=== PATIENT | female | born 1980 | race Caucasian/White ===

== ENCOUNTER 2019-10-02 15:32 | Emergency (ER) | payer OTHER, SELFPAY ==
--- NOTE | 2019-10-02 16:01 | XRR_ITS ---
PROCEDURE INFORMATION: Exam: XR Left Wrist Exam date and time: 10/02/2019 4:31 PM Age: 39 years old Clinical indication: Pain; Wrist; Left; Additional info: Injury TECHNIQUE: Imaging protocol: XR Left wrist. Views: 3 or more views. COMPARISON: No relevant prior studies available. FINDINGS: Bones/joints: Normal. Soft tissues: Normal. XR/XR wrist LT min 3V* [id number] IMPRESSION: No acute abnormality.
[2019-10-02 16:41] VITALS: BP 152/103; PULSE 73; RESP 16; TEMP 36.9; O2SAT 100; BMI 33.3
--- NOTE | 2019-10-02 17:35 | W.ED.EXTPRO ---
HPI - Extremity Problem General: Chief complaint: Extremity Injury, Upper Stated complaint: L WRIST INJURY Time Seen by Provider: 10/02/19 16:14 Review of Systems General: Reports: 10 or more systems reviewed and unremarkable except in HPI and below PFSH ED PFSH: Medical History Anxiety and depression GERD (gastroesophageal reflux disease) Surgical History History of cholecystectomy History of sinus surgery Family History Other Autoimmune disease CAD (coronary artery disease) Cancer Hypertension Psychiatric illness Stroke Social History Smoking and tobacco status: never smoked Alcohol intake: never Physical Exam Narrative: EXAM NARRATIVE: Patient has a several month long history of left wrist pain. She has been told multiple times by multiple providers that the wrist was sprained and has worn a splint each time. Patient states that the splints are not helping and that she is still in pain. Course Vital Signs: Vital signs: Vital Signs Temperature 98.5 F 10/02/19 16:41 Pulse Rate 73 10/02/19 16:41 Respiratory Rate 16 10/02/19 16:41 Blood Pressure 152/103 10/02/19 16:41 Pulse Oximetry 100 10/02/19 16:41 Discharge Plan Discharge Patient Disposition: Home, Self-Care Clinical Impression: Sprain of left wrist Qualifiers: Encounter type: initial encounter Qualified Code(s): S63.502A - Unspecified sprain of left wrist, initial encounter Condition: Stable Prescriptions: No Action bupropion HCl [Wellbutrin XL] 150 mg tablet extended release 24 hr 150 mg PO QAM RF: 0 Nexplanon 68 mg implant 1 implant SUBDERMAL .as directed RF: 0 duloxetine [Cymbalta] 60 mg capsule,delayed release(DR/EC) 60 mg PO DAILY RF: 0 diclofenac sodium 75 mg tablet,delayed release (DR/EC) 75 mg PO BID Qty: 28 RF: 0 Discharge Orders: Discharge Order (Routine); Ordered 10/02/19 Ordered By: Hank Person Activity Restrictions/Additional Instructions: follow with Dr [place] Coding Level of Care Code ED Construction Producer for Asiya Dennison
[2019-10-02 17:46] VITALS: BP 140/88; PULSE 75; RESP 18; O2SAT 100
--- NOTE | 2019-10-06 10:06 | DCPLANNER ---
combat control manager had message to schedule a follow up appointment for patient with ortho. combat control manager called the ortho clinic, spoke with Pat, gave clinic patients information. combat control manager was told that patients information would be printed and reviewed. Clinic will call rifle case repairer and patient with appointment information.
--- NOTE | 2019-10-08 13:50 | DCPLANNER ---
Patient had an appointment scheduled for 10.07.19 with ortho. Patient did attend the appointment.
== END 2019-10-02 17:47 | disposition home or self-care (01) ==
PROVIDERS: Emergency Provider Family Medicine
DX: S63.502A Unspecified sprain of left wrist, initial encounter (principal); X58.XXXA Exposure to other specified factors, initial encounter
CPT/HCPCS: 12345; 29125; 73110; 99281; 99283

== ENCOUNTER 2019-10-09 05:56 | Day surgery (SDC) | payer OTHER, SELFPAY ==
[2019-10-08 14:44] VITALS: BMI 37.4
[2019-10-09 06:10] LABS: OR HCG Qualitative Urine Negative (Negative)
[2019-10-09 06:31] VITALS: BP 145/90; PULSE 79; RESP 18; TEMP 36.3; O2SAT 99
--- NOTE | 2019-10-09 06:31 | ANES.PREANE2 ---
Pre-Anesthetic Assessment Pre-Anesthetic Assessment: Height/Weight: Height 1.65 m Weight 102.058 kg Preop Diagnosis: Left de Quervain's tenosynovitis Proposed Procedure: Operation Date: 10/09/19 07:00 Proposed Procedures p Dequervain Release [id number] M65.4(Left) - Hanna Floyd MD Last intake: Intake Last Liquid Date 10/08/19 Last Liquid Time 20:30 Last Solid Date 10/08/19 Last Solid Time 20:30 Social: Social History: No alcohol and No tobacco Exam: Pre-Anes Outpt Exam: alert, oriented x 3, clear to auscultation bilaterally and regular rate & rhythm Airway: Submandibular: WNL Cervical ROM: WNL MP: 1 Dentition: Other (teeth ok) History/ROS: No significant history except as noted Pulmonary: Pulmonary: None reported CV/HEM: CV/HEM: None reported : : None reported Hepatic: Hepatic: None reported GI: GI: GERD (not well controlled) Metabolic: Metabolic: Morbid obesity Musc/skel: Musc/skel: None reported Neuropsych: Neuropsych: Anxiety and Depression Anesthetic Plan: ASA status: 2 Anesthesia: Anesthesia Evaluation and MAC Risk of > 500 ml blood loss (7ml/kg in children): No PFSH Anesthesia PFSH: Medical History Anxiety and depression GERD (gastroesophageal reflux disease) Surgical History History of cholecystectomy History of sinus surgery Family History Other Autoimmune disease CAD (coronary artery disease) Cancer Hypertension Psychiatric illness Stroke Social History Smoking and tobacco status: never smoked Alcohol intake: never Female Reproductive History: Date of last menstrual period: 02/26/18 Data Anesthesia Other Labs: Laboratory Results - last 48 hr 10/09/19 05:56 Urine HCG, Qual Negative Cardiac Studies: No Data to Display
[2019-10-09] MEDS: CELEcoxib 200 mg Capsule 400 MG PO (06:43)
[2019-10-09] MEDS: sodium chloride 0.9% 1,000 ML 30 ML IV (06:52)
--- NOTE | 2019-10-09 06:55 | W.PM.OPSUD ---
Surgery/Procedure H&P Update DATE OF PROCEDURE: October 09, 2019 DATE H&P PERFORMED: 10/07/19 H&P UPDATE INFORMATION: I have reviewed H&P completed within last 30 days, I have examined patient prior to procedure and H&P is in [facility] on date indicated PREOP DIAGNOSIS: Left de Quervain's tenosynovitis PLANNED PROCEDURE: Operation Date: 10/09/19 07:00 Proposed Procedures p Dequervain Release [id number] M65.4(Left) - Hanna Floyd MD
[2019-10-09 07:55] VITALS: BP 132/85; PULSE 78; RESP 18; TEMP 36.3
[2019-10-09 08:21] VITALS: BP 112/87; PULSE 64; RESP 18; O2SAT 99
--- NOTE | 2019-10-09 08:23 | PM.OP ---
Operative Report Date of procedure: October 09, 2019 Pre-op Diagnosis: Left de Quervain's tenosynovitis Post-op diagnosis: same Procedure Done: Release left de Quervain's tenosynovitis Specimens removed/disposition: None Pathology: none sent Surgeon: Hanna Floyd Analytical Consultant: None Anesthesia: MAC (With [place] block) Estimated blood loss (mL): 0 Tourniquet time (min): 36 IV fluids (mL): 800 Urine output (mL): 0 Complications: None Condition: stable Disposition: same day Brief History: This 39-year-old woman presented to my office with complaints consistent with de Quervain's tenosynovitis. After discussion with the patient, she did wish to proceed with operative intervention. Risks and complications were discussed with her. Consents were signed preoperatively. The patient was scheduled for the above procedure. Procedure: The patient was brought to the operating theater. Anesthesia provided [place] block with MAC. The patient's left upper extremity was prepped and draped in usual fashion utilizing DuraPrep. It was draped free. The radial styloid was palpated and an incision was made horizontally approximately 1 cm proximal to the tip of the radial styloid. Dissection continued through the skin and dermis but following that soft tissue blunt dissection was accomplished to prevent injury to the superficial radial nerve branches in the area. We were able to retract these branches and the first dorsal compartment was visualized. The canal was released longitudinally using a combination of scalpel and scissors. We then confirmed that each of the tendons at been released. There was one abductor pollicis longus tendons and one extensor pollicis brevis tendon. All of these were released at least a centimeter distal to the radial styloid and proximally as well. There was no further compression across the tendons. The tendons were pulled up out of the tunnel for evaluation. Following this, the wound was irrigated. Attention was then directed to closure. Closure was accomplished with 4-0 Monocryl in a subcuticular suture was placed in a running fashion. We injected the wound with half percent Marcaine plain for local anesthetic. This was followed by Steri-Strips, Exofin, and a Tegaderm. We then placed a compression dressing and Miles wrap. Patient was returned to Recovery Room in a satisfactory condition and will be discharged home to follow-up with me in the office. There were no specimens and no complications.
== END 2019-10-09 08:40 | disposition home or self-care (01) ==
PROVIDERS: PCP Family Medicine; Visit Provider Specialist
PROC: (CPT 25000; principal; 2019-10-09 07:00)
DX: M65.4 Radial styloid tenosynovitis [de Quervain] (principal); K21.9 Gastro-esophageal reflux disease without esophagitis; E66.01 Morbid (severe) obesity due to excess calories; Z68.37 Body mass index [BMI] 37.0-37.9, adult; F41.9 Anxiety disorder, unspecified; F32.9 Major depressive disorder, single episode, unspecified
CPT/HCPCS: 25000; 12345; 81025; 84703; J2001; J2704; J3490; J7030

== ENCOUNTER → 2020-02-13 15:03 | Outpatient (BNVA) | payer BC, SELFPAY | PROVIDERS: PCP Family Medicine; Visit Provider Nurse Practitioner Family | DX: N39.0 Urinary tract infection, site not specified (principal) | CPT/HCPCS: 81000 ==

== ENCOUNTER 2020-09-19 13:53 | Inpatient (IN) | payer BC, SELFPAY ==
[2020-09-19 13:56] VITALS: BP 142/89; PULSE 91; RESP 16; TEMP 36.7; O2SAT 100; BMI 35.7
--- NOTE | 2020-09-19 14:01 | ECG_ITS ---
[facility] Test Date: 2020-09-19 Pat Name: Yusra Appiah Department: Room: Gender: Female Belt Cutter: : 1980 Requested By: Oumar Solis Order Number: [id number] Abraham MD: Polly Rodriguez M.D. Measurements Intervals [place] Rate: 80 P: 64 [place]: 141 QRS: -5 QRSD: 87 T: 43 QT: 349 QTc: 404 Interpretive Statements SINUS RHYTHM WITH SINUS ARRHYTHMIA LOW QRS VOLTAGE IN PRECORDIAL LEADS [QRS DEFLECTION < 1.0 mV IN CHEST LEADS] NONSPECIFIC T-WAVE ABNORMALITY No previous ECG available for comparison Electronically Signed On 09-20-2020 9:26:10 CDT by Polly Rodriguez M.D. [email or web address]
--- NOTE | 2020-09-19 14:21 | ED_ITS ---
HPI - Psych General: Chief Complaint: Psychiatric Symptoms Stated Complaint: Depression/SI Time Seen by Provider: 09/19/20 14:01 History of Present Illness: HPI Narrative: The patient is a 40-year-old female with past medical history of depression comes to the ER complaining of suicidal ideations. She says she is feeling very anxious and feels like no one cares anymore and that she is very depressed and wants to hurt herself. She says she does not want to get up and go to work. Denies alcohol or drugs MD complaint: suicidal ideation and feels depressed Onset (ago): day(s) (2) Duration: constant History of same: Yes Relieving factors: none Context: significant life stressor Associated psychiatric symptoms: depression and suicidal ideation Associated symptoms: Reports depression and suicidal ideation If self harm: admits thoughts of self harm Review of Systems General: Reports: 10 or more systems reviewed and unremarkable except in HPI and below Const: Denies: fatigue Eyes: Denies: change in vision, blurry vision or eye redness ENMT: Denies: throat pain, swelling of lips/tongue, ear or mastoid pain or sabrina al congestion Card: Denies: chest pain, palpitations, irregular heart rhythm, edema, dyspnea on exertion or orthopnea Resp: Denies: dyspnea, productive cough or non-productive cough GI: Denies: abdominal pain, diarrhea or GI cramping : Denies: flank pain, difficulty voiding, urinary frequency or urinary urgency Musc: Denies: neck pain, back pain, extremity pain, joint pain, joint redness, limited range of motion or muscle weakness Skin/Breast: Denies: rash, pruritus, erythema, skin pain or skin tenderness Neuro: Denies: headache(s), numbness in extremities, weakness in extremities, sensory changes, difficulty walking, dizziness, confusion or Slurred speech present Psych: Reports: anxiety, depression and suicidal ideation Endo: Denies: polyuria All/Imm: Denies: urticaria, throat swelling or tongue swelling PFSH ED PFSH: Medical History (Updated 09/19/20 @ 17:17 by Oumar Solis MD) Anxiety and depression GERD (gastroesophageal reflux disease) Surgical History History of cholecystectomy History of sinus surgery Family History Other Autoimmune disease CAD (coronary artery disease) Cancer Hypertension Psychiatric illness Stroke Social History Smoking and tobacco status: never smoked Alcohol intake: never Female Reproductive History: Date of last menstrual period: 09/16/20 Physical Exam Const: COMMON NORMALS: no acute distress, average body habitus, patient oriented x3, no limitations, healthy appearing, alert and well nourished GENERAL APPEARANCE: cooperative, comfortable, well developed and anxious ORIENTATION/CONSCIOUSNESS: Yes awake, Yes oriented to person, Yes oriented to place and Yes oriented to time HENMT: COMMON NORMALS: normocephalic, external ears normal and Normal external nose present HEAD & SCALP: normal to inspection and normocephalic NOSE: Normal external nose present EXTERNAL EAR: Yes external ears normal MOUTH: Normal oral and palatal mucosa present THROAT: posterior oropharynx normal Eye: COMMON NORMALS: Equal, round and reactive pupils present and EOMs intact bilaterally GENERAL EYE: appearance normal, both eyes and all related structures PUPIL: Yes Equal, round and reactive pupils present Neck/C-Spine: COMMON NORMALS: full ROM, no lymphadenopathy, no meningeal signs and no JVD GENERAL: Yes normal visual inspection Lymph: LYMPHATIC: no lymphadenopathy noted Chest: COMMONS NORMALS: normal inspection of the chest and normal palpation of entire chest wall Resp: COMMON NORMALS: normal respiratory effort, No retractions, No use of accessory muscles, clear to auscultation bilaterally and percussion normal EFFORT & INSPECTION: Yes able to speak in complete sentences AUSCULTATION: clear to auscultation bilaterally PERCUSSION: percussion normal Cardio: COMMON NORMALS: no JVD, regular rate, regular rhythm, S1 normal heart sound present, S2 normal heart sound present and Peripheral pulses 2+ throughout RATE: regular rate RHYTHM: regular rhythm HEART SOUNDS: S1 normal heart sound present and S2 normal heart sound present PERIPHERAL PULSES: Peripheral pulses 2+ throughout GI: COMMON NORMALS: Normal to inspection, nondistended, normoactive bowel sounds present, Soft to palpation, non-tender and no masses INSPECTION: Yes normal to inspection PALPATION: Yes Soft to palpation : COMMON NORMALS: Yes no CVA tenderness BLADDER/KIDNEY EXAM: Yes no CVA tenderness Back/Pelvis: COMMON NORMALS: no CVA tenderness, thoracic and lumbar spine normal to inspection, no thoracic nor lumbar tenderness and thoraco-lumbar ROM normal Extremity: COMMON NORMALS: normal to inspection, full ROM, capillary refill normal, no joint enlargement and no pedal edema GENERAL: Yes normal exam except as noted Neuro: COMMON NORMALS: patient oriented x3, CN's II-XII intact bilaterally, moves all extremities, no focal motor deficits, no sensory deficits noted and gait normal SENSORIUM/ORIENTATION: Yes alert, Yes oriented to person, Yes oriented to place and Yes oriented to time MENINGEAL SIGNS: Yes no meningeal signs Psych: COMMON NORMALS: cooperative and speech normal ATTITUDE: Yes calm SPEECH: Yes normal speech MOOD & AFFECT: Yes depressed mood and Yes anxious THOUGHT CONTENT: Yes Suicidality present INSIGHT: Poor insight present (Psych) JUDGEMENT: Poor judgement present (Psych) Skin: COMMON NORMALS: no rashes or lesions noted GENERAL SKIN EXAM: no rashes or lesions noted Course Vital Signs: Vital signs: Vital Signs Temperature 98.0 F 09/19/20 13:56 Pulse Rate 91 09/19/20 13:56 Respiratory Rate 16 09/19/20 13:56 Blood Pressure 142/89 09/19/20 13:56 Pulse Oximetry 100 09/19/20 13:56 MDM - Psych MDM Narrative: Medical decision making narrative: Patient came to the ER complaining of suicidal ideations and will be admitted to Dr. Ann. Lab Data: Labs: Lab Results 09/19/20 09/19/20 09/19/20 Range/Units 14:21 14:21 14:26 WBC (4.0-10.0) 10^3/ uL RBC (4.1-5.3) 10^6/u L Hgb (11.5-15.3) g/dL Hct (37.0-47.0) % MCV (81-99) fL MCH (28.0-34.0) pg MCHC (30.0-36.0) g/dL RDW (12.1-15.1) % Plt Count (130-400) 10^3/c mm MPV (7.4-10.4) fL Neut % (Auto) % Lymph % (Auto) % [place] % (Auto) % Eos % (Auto) % Baso % (Auto) % Neut # (Auto) (1.8-7.7) 10^3/u L Lymph # (Auto) (0.8-4.8) 10^3/u L [place] # (Auto) (0.2-0.9) 10^3/u L Eos # (Auto) (0.0-0.8) 10^3/u L Baso # (Auto) (0.0-0.1) 10^3/u L Nucleated RBC % (a uto) % Nucleated RBCs # /100WBC Sodium (136-145) mmol/L Potassium (3.5-5.1) mmol/L Chloride (98-107) mmol/L Carbon Dioxide (22-29) mmol/L Anion Gap (5-19) BUN (6-20) mg/dL Creatinine (0.5-0.9) mg/dL GFR Calculation (90-130) mL/min Glucose (65-115) mg/dL Calculated Osmolal ity (285-295) mOsm/k g Calcium (8.5-10.5) mg/dL Total Bilirubin (0.15-1.2) mg/dL AST (0-32) U/L ALT (0-33) U/L Alkaline Phosphata se (35-105) IU/L Total Protein (6.6-8.7) g/dL Albumin (3.5-5.2) g/dL Globulin (1.3-4.6) g/dL TSH (0.27-4.20) uIU/ mL HCG, Qual Negative (Negative) Urine Color Yellow (Yellow) Urine Appearance Clear (CLEAR) Urine pH 6 (5-7) Ur Specific Gravit y 1.015 (1.005-1.030) Urine Protein Neg (Negative) Urine Glucose (UA) Norm (Normal) Urine Ketones 1+ H (Negative) Urine Blood 3+ H (Negative) Urine Nitrate Negative (Negative) Urine Bilirubin 1+ H (Negative) Urine Urobilinogen Norm (Negative) mg/dL Ur Leukocyte Karen ase Negative (Negative) Urine RBC 0-4 H (0-2) /hpf Urine WBC 0-4 H (0-5) /hpf Ur Squamous Epith Cells 0-4 H (0-5) /hpf Amorphous Sediment Not Reportable Urine Bacteria 1+ H (NONE) /hpf Urine Mucus Trace /hpf Salicylates (3-10) mg/dL Urine Opiates Scre en Negative (Negative) ng/mL Acetaminophen (10-30) ug/mL Ur Barbiturates Sc reen Negative (Negative) ng/mL Ur Phencyclidine S crn Negative (Negative) ng/mL Ur Amphetamines Sc reen Negative (Negative) ng/mL U Benzodiazepines Scrn Negative (Negative) ng/mL Urine Cocaine Scre en Negative (Negative) ng/mL U Marijuana (THC) Screen Negative (Negative) ng/mL 09/19/20 09/19/20 Range/Units 14:34 14:34 WBC 8.0 (4.0-10.0) 10^3/ uL RBC 5.09 (4.1-5.3) 10^6/u L Hgb 14.4 (11.5-15.3) g/dL Hct 46.2 (37.0-47.0) % MCV 90.8 (81-99) fL MCH 28.3 (28.0-34.0) pg MCHC 31.2 (30.0-36.0) g/dL RDW 13.7 (12.1-15.1) % Plt Count 292 (130-400) 10^3/c mm MPV 11.2 H (7.4-10.4) fL Neut % (Auto) 62.2 % Lymph % (Auto) 30.5 % [place] % (Auto) 5.3 % Eos % (Auto) 1.3 % Baso % (Auto) 0.4 % Neut # (Auto) 4.98 (1.8-7.7) 10^3/u L Lymph # (Auto) 2.4 (0.8-4.8) 10^3/u L [place] # (Auto) 0.4 (0.2-0.9) 10^3/u L Eos # (Auto) 0.1 (0.0-0.8) 10^3/u L Baso # (Auto) 0.0 (0.0-0.1) 10^3/u L Nucleated RBC % (a uto) 0 % Nucleated RBCs # 0.0 /100WBC Sodium 140 (136-145) mmol/L Potassium 3.5 (3.5-5.1) mmol/L Chloride 105 (98-107) mmol/L Carbon Dioxide 24 (22-29) mmol/L Anion Gap 14.5 (5-19) BUN 7 (6-20) mg/dL Creatinine 0.8 (0.5-0.9) mg/dL GFR Calculation 79.9 L (90-130) mL/min Glucose 119 H (65-115) mg/dL Calculated Osmolal ity 289 (285-295) mOsm/k g Calcium 8.6 (8.5-10.5) mg/dL Total Bilirubin 0.3 (0.15-1.2) mg/dL AST 13 (0-32) U/L ALT 9 (0-33) U/L Alkaline Phosphata se 115 H (35-105) IU/L Total Protein 7.1 (6.6-8.7) g/dL Albumin 4.1 (3.5-5.2) g/dL Globulin 3.0 (1.3-4.6) g/dL TSH 2.18 (0.27-4.20) uIU/ mL HCG, Qual (Negative) Urine Color (Yellow) Urine Appearance (CLEAR) Urine pH (5-7) Ur Specific Gravit y (1.005-1.030) Urine Protein (Negative) Urine Glucose (UA) (Normal) Urine Ketones (Negative) Urine Blood (Negative) Urine Nitrate (Negative) Urine Bilirubin (Negative) Urine Urobilinogen (Negative) mg/dL Ur Leukocyte Karen ase (Negative) Urine RBC (0-2) /hpf Urine WBC (0-5) /hpf Ur Squamous Epith Cells (0-5) /hpf Amorphous Sediment Urine Bacteria (NONE) /hpf Urine Mucus /hpf Salicylates < 0.3 L (3-10) mg/dL Urine Opiates Scre en (Negative) ng/mL Acetaminophen < 5.0 L (10-30) ug/mL Ur Barbiturates Sc reen (Negative) ng/mL Ur Phencyclidine S crn (Negative) ng/mL Ur Amphetamines Sc reen (Negative) ng/mL U Benzodiazepines Scrn (Negative) ng/mL Urine Cocaine Scre en (Negative) ng/mL U Marijuana (THC) Screen (Negative) ng/mL Discharge Plan Discharge Patient Disposition: Admitted As Inpatient Clinical Impression: Suicidal ideation Condition: Stable Coding Level of Care Code ED Research Professional for g Fwd Exam Comprehensive
--- NOTE | 2020-09-19 14:41 | PC.NURSE ---
pt requests that her mother Anabel Elliott be contacted and notified that she is at the ER. Anabel contacted per pt request.
[2020-09-19] MEDS: LORazepam 1 mg Tablet PO (14:45)
[2020-09-19 14:49] LABS: Basophils % 0.4 %; Eosinophils # 0.1 10^3/uL (0.0-0.8); Eosinophils % 1.3 %; Hematocrit 46.2 % (37.0-47.0); Hemoglobin 14.4 g/dL (11.5-15.3); Lymphocytes # 2.4 10^3/uL (0.8-4.8); Lymphocytes % 30.5 %; Mean Corpuscular HGB Conc 31.2 g/dL (30.0-36.0); Mean Corpuscular Hemoglobin 28.3 pg (28.0-34.0); Mean Corpuscular Volume 90.8 fL (81-99); Mean Platelet Volume 11.2 fL (7.4-10.4); Monocytes # 0.4 10^3/uL (0.2-0.9); Monocytes % 5.3 %; Neutrophils # 4.98 10^3/uL (1.8-7.7); Neutrophils % 62.2 %; Nucleated Red Blood Cells % 0 %; Platelet Count 292 10^3/cmm (130-400); Red Blood Count 5.09 10^6/uL (4.1-5.3); Red Cell Distribution Width 13.7 % (12.1-15.1)
[2020-09-19 15:07] LABS: Add Urine Microscopic? YES; Bilirubin Urine 1+ (Negative); Blood Urine 3+ (Negative); Glucose Urine UA Norm (Normal); HCG Qualitative Urine. Negative (Negative); Ketones Urine 1+ (Negative); Leukocyte Esterase Urine Negative (Negative); Nitrate Urine Negative (Negative); Protein Urine Neg (Negative); Specific Gravity, Urine 1.015 (1.005-1.030); Urine Appearance Clear (CLEAR); Urine Color Yellow (Yellow); Urobilinogen Urine Norm (Negative); pH Urine 6 (5-7)
[2020-09-19 15:14] LABS: Alanine Aminotransferase 9 U/L (0-33); Albumin Level 4.1 g/dL (3.5-5.2); Alkaline Phosphatase 115 IU/L (35-105); Anion Gap 14.5 (5-19); Aspartate Amino Transferase 13 U/L (0-32); Blood Urea Nitrogen 7 mg/dL (6-20); Calcium 8.6 mg/dL (8.5-10.5); Carbon Dioxide 24 mmol/L (22-29); Chloride 105 mmol/L (98-107); Glomerular Filtration Rate 79.9 mL/min (90-130); Glucose 119 mg/dL (65-115); Osmolality Calculated 289 mOsm/kg (285-295); Potassium 3.5 mmol/L (3.5-5.1); Sodium 140 mmol/L (136-145); Thyroid Stimulating Hormone 2.18 uIU/mL (0.27-4.20); Total Bilirubin 0.3 mg/dL (0.15-1.2); Total Protein 7.1 g/dL (6.6-8.7)
[2020-09-19 15:16] LABS: Acetaminophen < 5.0 ug/mL (10-30); Salicylate < 0.3 mg/dL (3-10)
[2020-09-19 15:26] LABS: Add Urine Culture? No; Bacteria Urine 1+ /hpf; Mucus Urine TRACE /hpf; RBC Urine 0-4 /hpf (0-2); Squamous Epithelial Cell Urine 0-4 /hpf (0-5); WBC Urine 0-4 /hpf (0-5)
[2020-09-19 15:29] LABS: Amphetamines Screen Urine Negative (Negative); Barbiturates Screen Urine Negative (Negative); Benzodiazepines Screen Urine Negative (Negative); Cocaine Screen Urine Negative (Negative); Opiate Screen Urine Negative (Negative); PCP Screen Urine Negative (Negative); THC Screen Urine Negative (Negative)
[2020-09-19 17:31] VITALS: BP 136/78; PULSE 82; RESP 17; O2SAT 100
--- NOTE | 2020-09-19 17:31 | PC.NURSE ---
pt report called to Bharat POLLACK in SBAR format.
[2020-09-19 18:13] VITALS: BP 131/91; PULSE 86; RESP 14; TEMP 37.2; O2SAT 99
[2020-09-19 20:04] VITALS: BP 128/85; PULSE 88; RESP 14; TEMP 36.9; O2SAT 100
[2020-09-20 06:00] VITALS: BP 108/69; PULSE 72; RESP 18; TEMP 36.8; O2SAT 98
[2020-09-20] MEDS: acetaminophen 325 mg Tablet 650 MG PO ×2 (09:14→20:09)
--- NOTE | 2020-09-20 09:14 | PC.NURSE ---
PRN TYLENOL PT SPECIFICALLY REQUESTED TYLENOL FOR C/O HEADACHE. PT RATED HEADACHE 7 ON 1-10 PAIN SCALE. WILL REASSESS TO DETERMINE EFFICACY OF PRN MEDICATION.
--- NOTE | 2020-09-20 11:02 | P.HP_ITS ---
Providers/Chief Complaint Admitting Physician: Jeet Ann DO Primary Care Provider: Denice Gomez Chief Complaint: Depression/SI HPI NPU History of Present Illness Yusra Appiah is a 40 year old female with longstanding history of depression and anxiety treated with duloxetine 60 mg daily and bupropion SR 150 mg daily presented to the emergency department with worsening depression and anxiety in the context of multiple stressors with passive suicidal thoughts with no active intent or plan. Patient states that she has had depressive and anxiety symptoms since around age 21 or 22 but reports worsening depression and anxiety over the past couple of weeks culminating in worsening impairment in overall function to include calling into work typically once a week secondary to her depressive symptoms. Patient reports multiple life stressors to include family stressors and work stressors. She reports decreased energy and interest in her usual activities as well as low mood. She currently denies any suicidal thoughts and denies any past history of suicide attempts or self-harm behavior but feels frustrated with her worsening symptoms. She denies any modifying factors and denies any use of alcohol or substances. Patient also reports excessive worry and difficulty controlling her worrying but denies any past or current panic symptoms. She denies any perceptual disturbances or delusions in the context of her worsening depressive symptoms. She denies any history of manic or hypomanic episodes. Psychiatric review of systems is otherwise negative She reports being compliant with her medication which she states has been presc ribed by her primary care since relocating to the local area about a year ago. She does report having a remarkable history for past psychiatric hospitalizations on 3 previous occasions with last psychiatric hospitalization being in 2013. Review of Systems General: Reports: 10 or more systems reviewed and unremarkable except in HPI and below Meds NPU Home Medications Medication Instructions Recorded Confirmed Last Taken Type duloxetine 60 mg capsule,delayed 60 mg PO DAILY@1700 08/18/19 09/19/20 09/18/20 History release bupropion HCl 150 mg 24 hr tablet, 150 mg PO DAILY@1700 09/01/19 09/19/20 09/18/20 History extended release etonogestrel 68 mg subdermal 1 implant SUBDERMAL CONT each 09/01/19 09/19/20 U nknown History implant fluticasone propionate 50 1 spray INTRANASAL DAILY 10/07/19 09/19/20 10/08/19 History mcg/actuation nasal spray,suspension acetaminophen [Tylenol] 325 - 650 mg PO QID PRN 09/19/20 09/19/20 09/19/20 History famotidine [Pepcid] 20 mg PO DAILY@1700 09/19/20 09/19/20 09/18/20 History tinidazole 1,000 mg PO BID 09/19/20 09/19/20 09/19/20 History Allergies Allergy/AdvReac Type Severity Reaction Status Date / Time codeine Allergy ADR-Halluci Verified 02/13/20 14:53 nating PFSH NPU PFSH: Medical History (Updated 09/20/20 @ 11:07 by Jeet Ann DO) Anxiety and depression GERD (gastroesophageal reflux disease) Surgical History History of cholecystectomy History of sinus surgery Family History Other Autoimmune disease CAD (coronary artery disease) Cancer Hypertension Psychiatric illness Stroke Social History Smoking and tobacco status: never smoked Alcohol intake: never Other Psychiatric History: Other Psychiatric History: Per HPI above, reports that her medication is currently prescribed by her primary care Mental Status Exam MSE Comments: Appears stated age, appropriately groomed and dressed, initially lying down but sitting up for interview, calm, cooperative, interactive, good eye contact Psychomotor activity is neither increased nor decreased, no agitation Speech is normal rate and volume, spontaneous, clear articulation, not pressured I feel exhausted, congruent affect, full range, not labile Alert and oriented to person, place, time, situation Memory and concentration appear to be intact per interview Intellectual functioning appears to be above average based on vocabulary, interview Thought process, linear, no flight of ideas, no looseness of associations Thought content, no delusions, no hallucinations, no suicidal or homicidal ideation Insight and judgment appear to be intact Vitals/I&O/Wt Last Vital Signs Temp 98.3 F 09/20/20 06:00 Pulse 72 09/20/20 06:00 Resp 18 09/20/20 06:00 BP 108/69 09/20/20 06:00 Pulse Ox 98 09/20/20 06:00 Weight last 48 hrs Weight 97.522 kg Data NPU : 09/19/20 14:34 09/19/20 14:34 A&P Assessment and plan (1) Suicidal ideation: Status: Acute (2) Depressive disorder: Status: Acute (3) Anxiety disorder: Status: Acute Qualifiers: Anxiety disorder type: unspecified anxiety disorder Qualified Code(s): F41.9 - Anxiety disorder, unspecified Additional A&P Information Patient with longstanding history of anxiety and depression with worsening depressive and anxiety symptoms over the past couple of weeks, unclear if related to acute stressors versus representing a major depressive episode as well as near daily anxiety symptoms. Patient reports being compliant with her medication with no effect, states last counseling/therapy was a couple of years ago. Per above, patient has multiple ongoing life stressors which exacerbate her symptoms and reports significant impairment secondary to her symptoms. Patient was initially reporting passive suicidal thoughts but is no longer reporting any suicidal ideation and has no history of past suicide attempts or self-harm behavior. Patient would benefit from titrating up on an SSRI with possible augmentation with buspirone targeting depressive and anxiety symptoms under observation. VOLUNTARY ADMIT to inpatient psychiatry START Lexapro 10 mg daily with plan to titrate up for effect, may consider augmentation with buspirone 5 mg by mouth 3 times daily Encouraged patient to participate in unit activities to include group sessions, unit milieu Coordinate with long term care social worker for post discharge mental health follow-up to include medication management and counseling Involuntary Hold Information 96 Hour Hold: 96 Hour Involuntary Admission: No Attestations NPU Medical Necessity Statement*: Psychiatric hospitalization is indicated for medication stabilization, coordination for safe discharge Anticipate hospital stay to exceed 2 midnights Time Spent in Patient Care: Greater than 35 minutes (>than 50% of time spent in counselling and/or direct pt care on unit) . Coding Level of Care Code Acute [employer] for [employer] F[employer] Diagnoses Suicidal ideation R45.851 Depressive disorder F32.9 Anxiety disorder F41.9 Anxiety disorder type: unspecified anxiety disorder
[2020-09-20] MEDS: escitalopram 10 mg Tablet PO (11:41)
[2020-09-20 14:00] VITALS: BP 132/85; PULSE 94; RESP 18; TEMP 36.9; O2SAT 98
[2020-09-20 19:27] VITALS: BP 124/76; PULSE 87; RESP 16; TEMP 37.1; O2SAT 100
[2020-09-20] MEDS: ondansetron 4 MG Tablet PO (20:09)
--- NOTE | 2020-09-20 20:10 | PC.NURSE ---
PT GIVEN TYLENOL 650MG FOR C/O HEADACHE AND ZOFRAN FOR C/O NAUSEA.
--- NOTE | 2020-09-20 21:00 | PC.NURSE ---
PT RESTING QUIETLY WITH BOTH EYES CLOSED
--- NOTE | 2020-09-20 22:31 | PC.NURSE ---
PM Assessment Denies pain, Denies AH/VH, reports intermittent Nausea, med nurse notified. Pt denies SI/HI. She is resting in her bed and has remained there all evening.Pt reports generally not feeling well and verbalized her thoughts regarding cause. She stated, Changing medications has made me tired and nauseated. Medication nurse notified of pt need of nausea medication. Will continue to observe.
[2020-09-21 06:00] VITALS: BP 119/72; PULSE 92; RESP 18; TEMP 36.5; O2SAT 97
[2020-09-21] MEDS: escitalopram 10 mg Tablet PO ×2 (07:47→09:34)
--- NOTE | 2020-09-21 10:54 | PM.NDC ---
Diagnoses at Discharge Discharge Diagnosis (1) Suicidal ideation: Status: Acute (2) Depressive disorder: Status: Acute (3) Anxiety disorder: Status: Acute Qualifiers: Anxiety disorder type: unspecified anxiety disorder Qualified Code(s): F41.9 - Anxiety disorder, unspecified Reason for Visit Reason for Visit: Depression/SI Hospital Course Hospital Course 40 year old female with longstanding history of depression and anxiety treated with duloxetine 60 mg daily and bupropion SR 150 mg daily presented to the emergency department with worsening depression and anxiety in the context of multiple stressors with passive suicidal thoughts with no active intent or plan. She continued to report some depressive symptoms in the context of ongoing work and life stress. Patient states that she had not attended counseling or therapy in the last couple of years but reports that it had previously been helpful. Patient reported some improvement in her depressive and anxiety symptoms after starting Lexapro 10 mg daily; she did report some GI upset after her initial dose but denied any subsequent side effects. Patient was no longer suicidal during her admission and reported significant improvement in her symptoms and function and did not appear to pose an imminent threat of harm to self or others at the time of discharge. Patient continued to be future oriented and looking forward to discharge and returning home. Low to moderate risk of harm to self given no current suicidal ideation and no current psychiatric symptoms although patient's risk may be elevated if she uses any substances or alcohol or is noncompliant with treatment leading to unexpected, impulsive behavior. Risk mitigation included psychiatric hospitalization, medication stabilization, recommendation to abstain from the use of any substances and alcohol as well as the need for compliance with post discharge medication, medication management and therapy follow-up. Patient was able to communicate her understanding of the need to be compliant with her post discharge medication, medication management and therapy follow-up as well as abstaining from the use of any substances or alcohol in order to further mitigate her risk of harm to self and others. Involuntary Hold Information 96 Hour Hold: 96 Hour Involuntary Admission: No Mental Status Exam MSE Comments: Sitting up on her bed, appropriately groomed and dressed wearing hospital scrubs, polite, interactive, good eye contact Psychomotor activity is neither increased nor decreased, no agitation Speech is normal rate and volume, spontaneous, clear articulation, not pressured I feel better, congruent affect, full range, smiling at times during interview, not labile Alert and oriented to person, place, time, situation Memory and concentration appear to be intact per interview Thought process, linear, no flight of ideas, no looseness of associations Thought content, no delusions, no hallucinations, no suicidal or homicidal ideation Insight and judgment appear to be intact Discharge Data Vitals: Last Vital Signs Temp 97.7 F 09/21/20 06:00 Pulse 92 09/21/20 06:00 Resp 18 09/21/20 06:00 BP 119/72 09/21/20 06:00 Pulse Ox 97 09/21/20 06:00 Discharge Plan Discharge Patient Disposition: Home Condition: Stable Prescriptions: New escitalopram oxalate 10 mg Tablet 20 mg PO DAILY Qty: 30 RF: 0 Continued Nexplanon 68 mg implant 1 implant SUBDERMAL CONT RF: 0 fluticasone propionate [Flonase Allergy Relief] 50 mcg/actuation spray,suspension 1 spray INTRANASAL DAILY RF: 0 Tylenol 325 mg Tablet 325 - 650 mg PO QID PRN (Reason: Pain) RF: 0 Pepcid 20 mg Tablet 20 mg PO DAILY@1700 RF: 0 tinidazole 500 mg tablet 1,000 mg PO BID RF: 0 Discontinued bupropion HCl [Wellbutrin XL] 150 mg tablet extended release 24 hr 150 mg PO DAILY@1700 RF: 0 duloxetine [Cymbalta] 60 mg capsule,delayed release(DR/EC) 60 mg PO DAILY@1700 RF: 0 Discharge Orders: Discharge Order (Routine); Ordered 09/21/20 Ordered By: Jeet Ann Referrals: [facility] [Outside] Denice Gomez PA [Primary Care Provider] - 09/27/20 9:30 am (The FMLA was faxed to [employer]. Dr Gomez will complete the FMLA and follow-up with you.) Discharge Diet: Regular Discharge Activity: Resume usual activity Patient Instructions: Opioid Safety Discharge Attestations NPU Time Spent in Discharge Care*: greater than 30 min Status at Discharge: Cognitive status at discharge: cognitively intact, Behavioral status at discharge: cooperative, Functional status at discharge: independent ambulation Overall status at discharge: patient is back to baseline Coding Level of Care Code Acute Chg FW DC note Diagnoses Suicidal ideation R45.851 Depressive disorder F32.9 Anxiety disorder F41.9 Anxiety disorder type: unspecified anxiety disorder
[2020-09-21 11:42] VITALS: BP 119/72; PULSE 92; RESP 18; TEMP 36.5; O2SAT 97
== END 2020-09-21 13:03 | disposition home or self-care (01) | DRG 881 ==
LOC: ER 17:17 → NP 17:25
PROVIDERS: Admitting Provider Psychiatry & Neurology Psychiatry; Emergency Provider Family Medicine; PCP Physician Assistant; Visit Provider Psychiatry & Neurology Psychiatry
DX: F32.9 Major depressive disorder, single episode, unspecified (principal); R45.851 Suicidal ideations; F41.9 Anxiety disorder, unspecified; K21.9 Gastro-esophageal reflux disease without esophagitis; Z81.8 Family history of other mental and behavioral disorders
CPT/HCPCS: 80053; 80306; 80307; 81001; 81025; 84443; 85025; 93005; 99285; Q0162

== ENCOUNTER 2020-12-06 08:41 | Emergency (ER) | payer BC, SELFPAY ==
[2020-12-06] VITALS (9 sets, daily range): BP systolic 102–146; BP diastolic 62–92; PULSE 59–85; RESP 16–18; TEMP 36.7; O2SAT 98–100; BMI 36.6
--- NOTE | 2020-12-06 09:52 | CT_ITS ---
WS: [id number] CT head wo con* [id number] REASON FOR EXAM: MORA, confusion, fatigue, off balance IV CONTRAST ADMINISTERED: Noncontrast. TOTAL EXAM DLP: 911.[address] scans at [facility] use at least one of these dose optimization techniques: automat ed exposure control; mA and/or kV adjustment per patient size (includes targeted exams where dose is matched to clinical indication); or iterative reconstruction. FINDINGS: No midline shift or other significant mass effect. No findings of intracranial hemorrhage and no extra-axial fluid collection. No focal brain parenchymal abnormality in the cerebral hemispheres, ranging spin, or cerebellar hemis pheres. Ventricular system is normal. The base of the skull and bony calvarium are intact. CT/CT head wo con* [id number] IMPRESSION: No acute intracranial abnormality.
--- NOTE | 2020-12-06 09:55 | ED_ITS ---
HPI - Headache General: Chief Complaint: Headache Stated Complaint: Severe headache, confusion, dizzy Time Seen by Provider: 12/06/20 09:33 Source: patient and family (mother) Mode of arrival: ambulatory Limitations: no limitations History of Present Illness: HPI Narrative: Patient is a 40-year-old female who presents to ED today along with her mother for complaints of a headache. Patient tells me headache initially started 3 weeks ago and was intermittent. She states over the past 72 hours it has been constant and severe. She is complaining of weakness, fatigue, intermittent visual changes, confusion, and feeling off balance. Patient and family feels this could be secondary to her medications. Patient was hospitalized at [facility] in September and had her medications of Effexor and Wellbutrin changed to Lexapro and BuSpar. She has not had any other medication changes. She has no history of migraine headaches. No fevers or neck stiffness. Patient states she has been battling a chronic refractory trichomonal infection and has been on 8 rounds of antibiotics for this-following up with PCP. She has appointment with [facility] at the end of Dec. States this is causing her a lot of stress/anxiety. Denies abdominal/pelvic pain or vaginal discharge currently. Onset description: gradually Severity: severe Exacerbating factors: light and noise Relieving factors: rest and dark room Associated symptoms: Reports confusion; Deny chest pain, fever(s), lightheadedness, malaise, nausea, rash, syncope or vomiting Review of Systems Const: Reports: fatigue; Denies: fever(s), chills, body aches, change in appetite, change in weight or malaise Eyes: Reports: change in vision and photophobia; Denies: blurry vision, eye discomfort, eye discharge, floaters or seeing flashes ENMT: Denies: throat pain, odynophagia, nasal discharge or nasal congestion Card: Denies: chest pain, palpitations, irregular heart rhythm, lightheadedness, syncope or dyspnea on exertion Resp: Denies: dyspnea, productive cough or pain on inspiration GI: Denies: abdominal pain, nausea, vomiting, heartburn or diarrhea : Denies: dysuria Musc: Denies: neck pain, back pain or joint pain Skin/Breast: Denies: rash Neuro: Reports: headache(s), lack of coordination, difficulty walking, confusion and difficulty communicating thoughts; Denies: numbness in extremities, sensory changes, frequent falls, dizziness, vertigo, behavioral changes, Slurred speech present, seizure-like activity or involuntary movements Psych: Reports: anxiety and depression PFSH ED PFSH: Medical History (Updated 12/06/20 @ 14:05 by SUMIT Anderson) Anxiety and depression GERD (gastroesophageal reflux disease) Major depressive disorder, recurrent, moderate Reported symptoms: Cries easily; fatigue;; mind goes blank; difficulty concentrating; trouble making decisions; trouble remembering; thoughts hard to dismiss; trouble sleeping; easily annoyed and irritability; nervous feeling; excessive worries and fears; decreased interests in things; feeling inferior; work difficulties; and previous thoughts of harming self. Surgical History History of cholecystectomy History of sinus surgery Family History Other Autoimmune disease CAD (coronary artery disease) Cancer Hypertension Psychiatric illness Stroke Social History Smoking and tobacco status: never smoked Alcohol intake: never Female Reproductive History: Date of last menstrual period: 09/16/20 Physical Exam Const: COMMON NORMALS: no acute distress, average body habitus, patient oriented x3, no limitations, healthy appearing, alert and well nourished GENERAL APPEARANCE: cooperative ORIENTATION/CONSCIOUSNESS: Yes awake, Yes oriented to person, Yes oriented to place and Yes oriented to time HENMT: COMMON NORMALS: normocephalic and atraumatic HEAD & SCALP: normal to inspection, normocephalic and atraumatic FACE & SINUS: normal facial exam Eye: COMMON NORMALS: Equal, round and reactive pupils present and EOMs intact bilaterally GENERAL EYE: appearance normal, both eyes and all related structures PUPIL: Yes Equal, round and reactive pupils present OTHER: no nystagmus Neck/C-Spine: COMMON NORMALS: full ROM, no lymphadenopathy and no meningeal signs Resp: COMMON NORMALS: normal respiratory effort Neuro: JAMIE COMA SCALE: document GCS findings Jamie coma scale eye opening: Spontaneous Jamie coma scale verbal response: Orientated Jamie coma scale motor response: Obey commands Jamie coma scale total score: 15 COMMON NORMALS: patient oriented x3, CN's II-XII intact bilaterally, moves all extremities, no focal motor deficits, no sensory deficits noted and gait normal SENSORIUM/ORIENTATION: Yes alert, Yes oriented to person, Yes oriented to place and Yes oriented to time MENINGEAL SIGNS: Yes no meningeal signs Skin: COMMON NORMALS: no rashes or lesions noted GENERAL SKIN EXAM: no rashes or lesions noted Course Vital Signs: Vital signs: Vital Signs Temperature 98.1 F 12/06/20 08:54 Pulse Rate 65 12/06/20 10:12 Respiratory Rate 18 12/06/20 10:12 Blood Pressure 113/70 12/06/20 10:12 Pulse Oximetry 100 12/06/20 10:12 MDM - Headache MDM Narrative: Medical decision making narrative: Patient does not want any evaluation for her trichomonal infection stating she has follow-up with [facility] scheduled. CT of her head is negative. Labs are non-concerning. She does have some hematuria without any evidence of infection. Headache has improved after medications here. Certainly her medications of Lexapro and BuSpar could be causing her symptoms especially since symptoms started shortly after she was placed on these. Recommend she continue to follow-up with [facility] to see if they want to adjust these medications. Otherwise recommend to follow-up with PCP if headache continues. Lab Data: Labs: Lab Results 12/06/20 12/06/20 12/06/20 Range/Units 10:24 10:24 10:24 WBC 6.5 (4.0-10.0) 10^3/ uL RBC 4.78 (4.1-5.3) 10^6/u L Hgb 13.6 (11.5-15.3) g/dL Hct 43.2 (37.0-47.0) % MCV 90.4 (81-99) fL MCH 28.5 (28.0-34.0) pg MCHC 31.5 (30.0-36.0) g/dL RDW 13.0 (12.1-15.1) % Plt Count 219 (130-400) 10^3/c mm MPV 11.7 H (7.4-10.4) fL Neut % (Auto) 56.6 % Lymph % (Auto) 35.0 % [place] % (Auto) 6.2 % Eos % (Auto) 1.4 % Baso % (Auto) 0.6 % Neut # (Auto) 3.66 (1.8-7.7) 10^3/u L Lymph # (Auto) 2.3 (0.8-4.8) 10^3/u L [place] # (Auto) 0.4 (0.2-0.9) 10^3/u L Eos # (Auto) 0.1 (0.0-0.8) 10^3/u L Baso # (Auto) 0.0 (0.0-0.1) 10^3/u L Nucleated RBC % (a uto) 0 % Nucleated RBCs # 0.0 /100WBC Sodium 136 (136-145) mmol/L Potassium 3.9 (3.5-5.1) mmol/L Chloride 103 (98-107) mmol/L Carbon Dioxide 24 (22-29) mmol/L Anion Gap 12.9 (5-19) BUN 7 (6-20) mg/dL Creatinine 0.6 (0.5-0.9) mg/dL GFR Calculation 111.3 (90-130) mL/min Glucose 92 (65-115) mg/dL Calculated Osmolal ity 280 L (285-295) mOsm/k g Lactic Acid 0.8 (0.5-2.2) mmol/L Calcium 8.4 L (8.5-10.5) mg/dL Total Bilirubin 0.3 (0.15-1.2) mg/dL AST 14 (0-32) U/L ALT 10 (0-33) U/L Alkaline Phosphata se 108 H (35-105) IU/L Ammonia (11-51) umol/L Total Protein 7.1 (6.6-8.7) g/dL Albumin 4.1 (3.5-5.2) g/dL Globulin 3.0 (1.3-4.6) g/dL Urine Color (Yellow) Urine Appearance (CLEAR) Urine pH (5-7) Ur Specific Gravit y (1.005-1.030) Urine Protein (Negative) Urine Glucose (UA) (Normal) Urine Ketones (Negative) Urine Blood (Negative) Urine Nitrate (Negative) Urine Bilirubin (Negative) Urine Urobilinogen (Negative) mg/dL Ur Leukocyte Karen ase (Negative) Urine RBC (0-2) /hpf Urine WBC (0-5) /hpf Ur Squamous Epith Cells (0-5) /hpf Amorphous Sediment Urine Bacteria (NONE) /hpf 12/06/20 12/06/20 Range/Units 10:24 11:18 WBC (4.0-10.0) 10^3/ uL RBC (4.1-5.3) 10^6/u L Hgb (11.5-15.3) g/dL Hct (37.0-47.0) % MCV (81-99) fL MCH (28.0-34.0) pg MCHC (30.0-36.0) g/dL RDW (12.1-15.1) % Plt Count (130-400) 10^3/c mm MPV (7.4-10.4) fL Neut % (Auto) % Lymph % (Auto) % [place] % (Auto) % Eos % (Auto) % Baso % (Auto) % Neut # (Auto) (1.8-7.7) 10^3/u L Lymph # (Auto) (0.8-4.8) 10^3/u L [place] # (Auto) (0.2-0.9) 10^3/u L Eos # (Auto) (0.0-0.8) 10^3/u L Baso # (Auto) (0.0-0.1) 10^3/u L Nucleated RBC % (a uto) % Nucleated RBCs # /100WBC Sodium (136-145) mmol/L Potassium (3.5-5.1) mmol/L Chloride (98-107) mmol/L Carbon Dioxide (22-29) mmol/L Anion Gap (5-19) BUN (6-20) mg/dL Creatinine (0.5-0.9) mg/dL GFR Calculation (90-130) mL/min Glucose (65-115) mg/dL Calculated Osmolal ity (285-295) mOsm/k g Lactic Acid (0.5-2.2) mmol/L Calcium (8.5-10.5) mg/dL Total Bilirubin (0.15-1.2) mg/dL AST (0-32) U/L ALT (0-33) U/L Alkaline Phosphata se (35-105) IU/L Ammonia 30 (11-51) umol/L Total Protein (6.6-8.7) g/dL Albumin (3.5-5.2) g/dL Globulin (1.3-4.6) g/dL Urine Color Yellow (Yellow) Urine Appearance Clear (CLEAR) Urine pH 7 (5-7) Ur Specific Gravit y 1.000 L (1.005-1.030) Urine Protein Neg (Negative) Urine Glucose (UA) Norm (Normal) Urine Ketones Negative (Negative) Urine Blood 3+ H (Negative) Urine Nitrate Negative (Negative) Urine Bilirubin Neg (Negative) Urine Urobilinogen Norm (Negative) mg/dL Ur Leukocyte Karen ase Negative (Negative) Urine RBC 10-15 H (0-2) /hpf Urine WBC None (0-5) /hpf Ur Squamous Epith Cells 0-4 H (0-5) /hpf Amorphous Sediment Not Reportable Urine Bacteria None (NONE) /hpf Imaging Data^: CT Head: Radiologist's impression: [address] [id number] Scan ReportSigned Patient: Yusra Appiah #: [id number]: [id number]#:[id number]/Sex: 40 / FADM Date: 12/06/20Loc: ERRoom/Bed:Attending Dr: Ordering Provider/Ordering MD: Ambar Hayes Date of Service: 12/06/20 Procedure(s): CT head wo con* [id number] Accession Number(s): [id number] Report Number: [id number] WS: [id number] CT head wo con* [id number] REASON FOR EXAM: MORA, confusion, fatigue, off balance IV CONTRAST ADMINISTERED: Noncontrast. TOTAL EXAM DLP: 911.[address] scans at [facility] use at least one of these dose optimization techniques: automated exposure control; mA and/or kV adjustment per patient size (includes targeted exams where dose is matched to clinical indication); or iterative reconstruction. FINDINGS: No midline shift or other significant mass effect. No findings of intracranial hemorrhage and no extra-axial fluid collection. No focal brain parenchymal abnormality in the cerebral hemispheres, ranging spin, or cerebellar hemispheres. Ventricular system is normal. The base of the skull and bony calvarium are intact. CT/CT head wo con* [id number] IMPRESSION: No acute intracranial abnormality. Dictated By:Jamin Awan Jr MDSigned By:Jamin Awan Jr MDSigned Date/Time:12/06/20 1128DD/ 1123 Discharge Plan Discharge Patient Disposition: Home Clinical Impression: Adverse reaction to antidepressant drug Qualifiers: Encounter type: initial encounter Qualified Code(s): T43.205A - Adverse effect of unspecified antidepressants, initial encounter Headache Qualifiers: Headache type: unspecified Headache chronicity pattern: acute headache Intractability: not intractable Qualified Code(s): R51.9 - Headache, unspecified Condition: Stable Prescriptions: No Action Nexplanon 68 mg implant 1 implant SUBDERMAL CONT RF: 0 fluticasone propionate [Flonase Allergy Relief] 50 mcg/actuation spray,suspension 1 spray INTRANASAL DAILY RF: 0 buspirone 15 mg tablet 15 mg PO BID Qty: 60 RF: 1 escitalopram oxalate 10 mg tablet 20 mg PO DAILY Qty: 60 RF: 1 acetaminophen [Tylenol] 325 mg Tablet 325 - 650 mg PO QID PRN (Reason: Pain) RF: 0 famotidine [Pepcid] 20 mg Tablet 20 mg PO DAILY@1700 RF: 0 Discharge Orders: Discharge ED (Routine); Ordered 12/06/20 Ordered By: Ambar Hayes Referrals: Denice Gomez PA [Primary Care Provider] - Coding Level of Care Code ED Personal Service Workers for Asiya Dennison
[2020-12-06] MEDS: sodium chloride 0.9% 1,000 ML 999 ML IV (10:13)
[2020-12-06] MEDS: ondansetron 2 mg/ML SDV 2 mL 4 MG IVP (10:15)
[2020-12-06] MEDS: diphenhydrAMINE 50 mg/mL SDV 1mL IVP (10:17)
[2020-12-06] MEDS: dexamethasone 10 mg/mL INJ 8 MG IV (10:19)
[2020-12-06] MEDS: ketorolac 60 mg/2 mL INJ 30 MG IVP (10:21)
[2020-12-06 10:32] LABS: Basophils % 0.6 %; Eosinophils # 0.1 10^3/uL (0.0-0.8); Eosinophils % 1.4 %; Hematocrit 43.2 % (37.0-47.0); Hemoglobin 13.6 g/dL (11.5-15.3); Lymphocytes # 2.3 10^3/uL (0.8-4.8); Mean Corpuscular HGB Conc 31.5 g/dL (30.0-36.0); Mean Corpuscular Hemoglobin 28.5 pg (28.0-34.0); Mean Corpuscular Volume 90.4 fL (81-99); Mean Platelet Volume 11.7 fL (7.4-10.4); Monocytes # 0.4 10^3/uL (0.2-0.9); Monocytes % 6.2 %; Neutrophils # 3.66 10^3/uL (1.8-7.7); Neutrophils % 56.6 %; Nucleated Red Blood Cells % 0 %; Platelet Count 219 10^3/cmm (130-400); Red Blood Count 4.78 10^6/uL (4.1-5.3); White Blood Count 6.5 10^3/uL (4.0-10.0)
[2020-12-06 10:53] LABS: Alanine Aminotransferase 10 U/L (0-33); Albumin Level 4.1 g/dL (3.5-5.2); Alkaline Phosphatase 108 IU/L (35-105); Aspartate Amino Transferase 14 U/L (0-32); Blood Urea Nitrogen 7 mg/dL (6-20); Calcium 8.4 mg/dL (8.5-10.5); Carbon Dioxide 24 mmol/L (22-29); Chloride 103 mmol/L (98-107); Glomerular Filtration Rate 111.3 mL/min (90-130); Glucose 92 mg/dL (65-115); Osmolality Calculated 280 mOsm/kg (285-295); Sodium 136 mmol/L (136-145); Total Bilirubin 0.3 mg/dL (0.15-1.2); Total Protein 7.1 g/dL (6.6-8.7)
[2020-12-06 10:54] LABS: Ammonia 30 umol/L (11-51); Lactic Sepsis W/Reflex 0.8 mmol/L (0.5-2.2)
[2020-12-06 11:01] LABS: Anion Gap 12.9 (5-19); Potassium 3.9 mmol/L (3.5-5.1)
[2020-12-06 11:48] LABS: Add Urine Microscopic? YES; Bilirubin Urine Neg (Negative); Blood Urine 3+ (Negative); Glucose Urine UA Norm (Normal); Ketones Urine Negative (Negative); Leukocyte Esterase Urine Negative (Negative); Nitrate Urine Negative (Negative); Protein Urine Neg (Negative); Urine Appearance Clear (CLEAR); Urine Color Yellow (Yellow); Urobilinogen Urine Norm (Negative); pH Urine 7 (5-7)
[2020-12-06 11:49] LABS: Add Urine Culture? No; Squamous Epithelial Cell Urine 0-4 /hpf (0-5)
[2020-12-06] MEDS: valproic acid inj 500 MG in sodium chloride 0.9% 50 ML 55 MG IV (13:02)
== END 2020-12-06 14:28 | disposition home or self-care (01) ==
PROVIDERS: Emergency Provider Physician Assistant; PCP Physician Assistant
DX: R51.9 Headache, unspecified (principal); T43.595A Adverse effect of other antipsychotics and neuroleptics, initial encounter; T43.225A Adverse effect of selective serotonin reuptake inhibitors, initial encounter
CPT/HCPCS: 70450; 80053; 81001; 82140; 83605; 85025; 96365; 96375; 99284; J1100; J1200; J1885; J2405; J7030

== ENCOUNTER → 2021-01-05 08:50 | Outpatient (BNVA) | payer SELFPAY | PROVIDERS: PCP Physician Assistant; Visit Provider Nurse Practitioner Women's Health | DX: Z11.3 Encounter for screening for infections with a predominantly sexual mode of transmission (principal); N89.8 Other specified noninflammatory disorders of vagina | CPT/HCPCS: 87070; 87205; 87491; 87591; 87661 ==

== ENCOUNTER 2022-02-07 07:09 | Day surgery (SDC) | payer OTHER, SELFPAY ==
[2022-02-05 13:47] VITALS: BMI 36.6
[2022-02-07 07:35] VITALS: BP 163/89; PULSE 84; RESP 18; TEMP 36.2; O2SAT 100
[2022-02-07 07:45] LABS: OR HCG Qualitative Urine Negative (Negative)
[2022-02-07] MEDS: sodium chloride 0.9% 1,000 ML 30 ML IV (07:58)
--- NOTE | 2022-02-07 08:19 | ANES.PREANE2 ---
Pre-Anesthetic Assessment Height/Weight: Height 1.65 m Weight 99.79 kg Temp Pulse Resp BP Pulse Ox O2 Del Method 97.2 F L 84 18 163/89 100 02/07/22 07:35 02/07/22 07:35 02/07/22 07:35 02/07/22 07:35 02/07/22 07:35 02/07/22 07:35 Preop Diagnosis: Abdominal Pain, Nausea, Diarrhea Operation Date: 02/07/22 08:45 Proposed Procedures p EGD and colonoscopy [id number],R10.9,R19.5,R177(Not Applicable) - Merrill Phillips DO s Colonoscopy(Not Applicable) - Merrill Phillips DO Familial anesthetic complications: none Was Beta Victor Manuel taken within 24 hours: N/A Was Clonidine taken within 24 hours: N/A Last intake: Intake Last Liquid Date 02/07/22 Last Liquid Time 06:00 Last Solid Date 02/05/22 Last Solid Time 20:00 Social No alcohol and No tobacco Airway Submandibular: within normal limits Cervical ROM: within normal limits Mallampati: Class II Dentition: full Pulmonary None reported CV/HEM None reported None reported Hepatic None reported GI Gastroesophageal Reflux Disease Abdominal Pain, Nausea (not today) and Diarrhea. Metabolic Morbid Obesity [facility] [place] None reported Neuropsych Anxiety and Depression Anesthetic Plan ASA status: 2 Anesthesia: MAC Medications/Allergies Home Medications Medication Instructions Recorded Confirmed Last Taken Type omeprazole 40 mg capsule,delayed 40 mg PO DAILY 01/19/22 02/07/22 02/05/22 History release Allergies Allergy/AdvReac Type Severity Reaction Status Date / Time onion Allergy Mild itching, Verified 02/05/22 13:45 hives, swelling. codeine Allergy ADR-Halluci Verified 02/05/22 13:45 nating Current Medications Generic Name Dose Route Start Last Admin Trade Name Freq PRN Reason Stop Dose Admin Sodium Chloride 1,000 mls @ 30 mls/hr 02/07/22 07:30 02/07/22 07:58 Sodium Chloride 0.9% IV 02/08/22 07:29 30 mls/hr .Q24H TANVI Administration PFSH Anesthesia Medical History (Updated 01/19/22 @ 08:27 by Merrill Phillips DO) Anxiety and depression GERD (gastroesophageal reflux disease) Major depressive disorder, recurrent, moderate Reported symptoms: Cries easily; fatigue;; mind goes blank; difficulty concentrating; trouble making decisions; trouble remembering; thoughts hard to dismiss; trouble sleeping; easily annoyed and irritability; nervous feeling; excessive worries and fears; decreased interests in things; feeling inferior; work difficulties; and previous thoughts of harming self. No pertinent past medical history neg dx- hnt, dm, thyroid, dvt/pe PCP: Clari Gomez Psychiatric care Surgical History History of cholecystectomy History of sinus surgery Family History Grandmother Diabetes maternal and paternal Hypertension maternal and paternal Stroke maternal Breast cancer maternal Grandfather Diabetes maternal and paternal Hypertension maternal and paternal Father Hypertension Mother Thyroid disease hosimotos Denies family history of Colon cancer Ovarian cancer Clotting disorder Hyperlipidemia Bleeding disorder Uterine cancer Social History Smoking and tobacco status: never smoked Female Reproductive History Date of last menstrual period: 01/11/22 Data Anesthesia Cardiac Studies: No Data to Display
--- NOTE | 2022-02-07 08:50 | W.PM.OPSUD ---
Surgery/Procedure H&P Update DATE OF PROCEDURE: February 07, 2022 DATE H&P PERFORMED: 01/19/22 PREOP DIAGNOSIS: Abdominal Pain, Nausea, Diarrhea PLANNED PROCEDURE: Operation Date: 02/07/22 08:45 Proposed Procedures p EGD and colonoscopy [id number],R10.9,R19.5,R177(Not Applicable) - DO gerda Martinez Colonoscopy(Not Applicable) - Merrill Phillips DO
[2022-02-07 09:32] VITALS: BP 133/79; PULSE 92; RESP 18; TEMP 36.5; O2SAT 97
[2022-02-07 09:43] VITALS: BP 113/74; PULSE 80; RESP 18; TEMP 36.3; O2SAT 99
--- NOTE | 2022-02-07 15:31 | ANE.PACU2 ---
Inpatient post-anesthesia follow up: Airway intact: Yes Vital signs: Temperature 97.4 F Pulse Rate 80 Respiratory Rate 18 Blood Pressure 113/74 Pulse Oximetry 99 Oxygen Delivery Me thod Room Air Oxygen Flow Rate Fraction of Inspir ed Oxygen Hydration adequate: Yes Nausea and vomiting: No Pain level: 1 Mental status: Baseline
== END 2022-02-07 10:03 | disposition home or self-care (01) ==
PROVIDERS: Anesthesiology; PCP Family Medicine; Visit Provider Surgery
PROC: 0DJ08ZZ Inspection of Upper Intestinal Tract, Via Natural or Artificial Opening Endoscopic (ICD-10-PCS; CPT 43235; principal; 2022-02-07 08:45)
PROC: 0DJD8ZZ Inspection of Lower Intestinal Tract, Via Natural or Artificial Opening Endoscopic (ICD-10-PCS; CPT 45378; 2022-02-07 08:45)
DX: R10.9 Unspecified abdominal pain (principal); R11.0 Nausea; R19.7 Diarrhea, unspecified; K44.9 Diaphragmatic hernia without obstruction or gangrene; D12.3 Benign neoplasm of transverse colon; K29.50 Unspecified chronic gastritis without bleeding; B96.81 Helicobacter pylori [H. pylori] as the cause of diseases classified elsewhere; K21.9 Gastro-esophageal reflux disease without esophagitis; E66.01 Morbid (severe) obesity due to excess calories; Z68.36 Body mass index [BMI] 36.0-36.9, adult; F41.9 Anxiety disorder, unspecified; F32.A Depression, unspecified
CPT/HCPCS: 43239; 45380; 45385; 81025; 82274; 83630; 84703; 87493; 87506; 88305; J2704; J7030

== ENCOUNTER 2023-02-07 20:00 | Emergency (ER) | payer OTHER, SELFPAY ==
[2023-02-07 20:20] VITALS: BP 134/75; PULSE 71; RESP 16; TEMP 36.7; O2SAT 98; BMI 36.6
--- NOTE | 2023-02-07 20:28 | XRR_ITS ---
PROCEDURE INFORMATION: Exam: XR Left Shoulder Exam date and time: 02/07/2023 8:41 PM Age: 42 years old Clinical indication: Injury or trauma; Fall TECHNIQUE: Imaging protocol: Radiologic exam of the left shoulder. Views: 2 or more views. COMPARISON: CR XR chest 2V* [id number] 06/02/2020 12:01 PM FINDINGS: Bones/joints: Normal. Soft tissues: Normal. XR/XR shoulder LT min 2V* [id number] IMPRESSION: No acute findings.
--- NOTE | 2023-02-07 21:00 | W.ED.EXTPRO ---
HPI - Extremity Problem General: Chief complaint: Extremity Injury, Upper Stated complaint: fell Time Seen by Provider: 02/07/23 20:42 History of Present Illness: 42-year-old female presents to the ER after a fall that occurred this morning. She states she fell and used her hand to stop her fall. She had pain in her left shoulder after the incident that has continued to increase throughout the day. She denies any other injury or head strike. No blood thinner usage reported. Associated symptoms: Deny chest pain or fever(s) Review of Systems Const: Denies: fever(s) or chills Eyes: Reports: change in vision Card: Denies: chest pain Resp: Denies: dyspnea GI: Denies: abdominal pain, nausea or vomiting Musc: Reports: extremity pain (Left shoulder pain) Neuro: Denies: headache(s) PFSH ED PFSH: Medical History (Updated 02/07/23 @ 21:05 by Kelly Louise) Anxiety and depression GERD (gastroesophageal reflux disease) Helicobacter pylori gastritis Major depressive disorder, recurrent, moderate Reported symptoms: Cries easily; fatigue;; mind goes blank; difficulty concentrating; trouble making decisions; trouble remembering; thoughts hard to dismiss; trouble sleeping; easily annoyed and irritability; nervous feeling; excessive worries and fears; decreased interests in things; feeling inferior; work difficulties; and previous thoughts of harming self. No pertinent past medical history neg dx- hnt, dm, thyroid, dvt/pe PCP: Clari Gomez Tubular adenoma of colon Surgical History History of cholecystectomy History of sinus surgery Family History Grandmother Diabetes maternal and paternal Hypertension maternal and paternal Stroke maternal Breast cancer maternal Grandfather Diabetes maternal and paternal Hypertension maternal and paternal Father Hypertension Mother Thyroid disease hosimotos Denies family history of Colon cancer Ovarian cancer Clotting disorder Hyperlipidemia Bleeding disorder Uterine cancer Social History Smoking and tobacco status: never smoked Substance/Drug Use: never Physical Exam Const: COMMON NORMALS: no acute distress, patient oriented x3 and alert HENMT: COMMON NORMALS: normocephalic and atraumatic HEAD & SCALP: normocephalic and atraumatic Eye: COMMON NORMALS: conjunctivae normal CONJUNCTIVA: Yes conjunctivae normal Neck/C-Spine: COMMON NORMALS: full ROM Resp: COMMON NORMALS: normal respiratory effort and No use of accessory muscles GI: COMMON NORMALS: Normal to inspection, nondistended, normoactive bowel sounds present Back/Pelvis: COMMON NORMALS: no thoracic nor lumbar tenderness Extremity: LEFT UPPER EXTREMITY: Yes shoulder joint Left shoulder joint: Yes inspection, Yes palpation (Pain to palpation in the bicipital groove.) and Yes ROM (Mostly intact with mild increased pain.) and Yes elbow joint Left elbow: Yes ROM Neuro: COMMON NORMALS: patient oriented x3 SENSORIUM/ORIENTATION: Yes alert Course Vital Signs: Vital signs: Vital Signs Temperature 98.0 F 02/07/23 20:20 Pulse Rate 71 02/07/23 20:20 Respiratory Rate 16 02/07/23 20:20 Blood Pressure 134/75 02/07/23 20:20 Pulse Oximetry 98 02/07/23 20:20 Oxygen Delivery Me thod Room Air 02/07/23 20:20 MDM - Extremity (Nontraumatic) Medical Decision Making 42-year-old female presents the ER after a fall at home this morning. She reports landing with outstretched hands. She has left shoulder pain which is worsened throughout the day. She does have slight limitations in range of motion due to pain. The majority of pain is not over the bony prominences but within the bicipital groove. Clavicle is nontender and proximal humerus is nontender on exam. DDx: Shoulder dislocation, fracture, clavicle fracture, strain Left shoulder imaging without bony abnormality identified. Sling applied and encouraged follow-up with PCP. XR interpretation done by ED provider, pending radiology final review ED provider radiology interpretation(s): No bony abnormality identified in left shoulder imaging. Discharge Plan Discharge Patient Disposition: Home Clinical Impression: Fall, Left shoulder strain Condition: Stable Prescriptions: No Action omeprazole 40 mg capsule,delayed release(DR/EC) 40 mg PO DAILY Hold Instructions: Resume on 03/21/22. Discharge Orders: Discharge ED (Routine); Ordered 02/07/23 Ordered By: Kelly Louise Referrals: Eriberto Armstrong MD [Primary Care Provider] - Discharge Activity: Limit activity as instructed Patient Instructions: Opioid Safety, Pain Management Activity Restrictions/Additional Instructions: Use Tylenol and ibuprofen as directed for pain. Take all medications with food and water. Wear sling for support until pain improves. Remove sling several times a day and practice range of motion of both elbow and shoulder. May use ice or heat as needed for pain control. If pain not improving in 1 to 2 weeks, follow-up with your primary care provider. Return to the ER for any new or worsening symptoms. Coding Level of Care Code ED Correspondent for Asiya Dennison
== END 2023-02-07 21:17 | disposition home or self-care (01) ==
PROVIDERS: Emergency Provider Clinical Nurse Specialist Adult Health; PCP Family Medicine
DX: S46.912A Strain of unspecified muscle, fascia and tendon at shoulder and upper arm level, left arm, initial encounter (principal); W19.XXXA Unspecified fall, initial encounter
CPT/HCPCS: 73030; 99283

== ENCOUNTER 2023-09-29 21:59 | Emergency (ER) | payer OTHER, SELFPAY ==
[2023-09-29 22:10] VITALS: BP 143/74; PULSE 76; RESP 17; TEMP 36.6; O2SAT 97; BMI 37.4
--- NOTE | 2023-09-29 22:36 | ED_ITS ---
HPI - Extremity Problem General: Chief complaint: Extremity Injury, Lower Stated complaint: Left hip pain/lower abd Time Seen by Provider: 09/29/23 22:36 History of Present Illness: 43-year-old female comes in today for co mplaints of injury to the left hip. Patient reports stepping off the last step of her porch and twisting her ankle and feeling pain in her hip. Patient reports no pain in the ankle. Patient reports mild pain in the knee and severe pain in the left hip. Patient appears nontoxic. Injury occurred this afternoon early. Review of Systems General: Reports: 10 or more systems reviewed and unremarkable except in HPI and below PFSH ED PFS: Medical History (Updated 09/29/23 @ 23:49 by JEAN PIERRE Briones) Tubular adenoma of colon Helicobacter pylori gastritis No pertinent past medical history neg dx- hnt, dm, thyroid, dvt/pe PCP: Clari Gmoez Major depressive disorder, recurrent, moderate Reported symptoms: Cries easily; fatigue;; mind goes blank; difficulty concentrating; trouble making decisions; trouble remembering; thoughts hard to dismiss; trouble sleeping; easily annoyed and irritability; nervous feeling; excessive worries and fears; decreased interests in things; feeling inferior; work difficulties; and previous thoughts of harming self. Anxiety and depression GERD (gastroesophageal reflux disease) Surgical History History of cholecystectomy History of sinus surgery Family History Grandmother Diabetes maternal and paternal Hypertension maternal and paternal Stroke maternal Breast cancer maternal Grandfather Diabetes maternal and paternal Hypertension maternal and paternal Father Hypertension Mother Thyroid disease hosimotos Denies family history of Colon cancer Ovarian cancer Clotting disorder Hyperlipidemia Bleeding disorder Uterine cancer Social History Smoking and tobacco/nicotine status: never used tobacco/nicotine Substance/Drug Use: never Physical Exam Const: COMMON NORMALS: alert HENMT: COMMON NORMALS: normocephalic HEAD & SCALP: normocephalic Neck/C-Spine: COMMON NORMALS: full ROM Resp: COMMON NORMALS: normal respiratory effort and clear to auscultation bilaterally AUSCULTATION: clear to auscultation bilaterally Cardio: COMMON NORMALS: regular rate and regular rhythm RATE: regular rate RHYTHM: regular rhythm GI: COMMON NORMALS: Soft to palpation PALPATION: Yes Soft to palpation Back/Pelvis: COMMON NORMALS: thoracic and lumbar spine normal to inspection Extremity: NARRATIVE EXTREMITY EXAM: Decreased range of motion of left hip due to pain. Tenderness is noted on pa lpation of the inguinal area. Distal pulses and sensation are intact. Neuro: SENSORIUM/ORIENTATION: Yes alert Skin: COMMON NORMALS: turgor normal GENERAL SKIN EXAM: turgor normal Course Vital Signs: Vital signs: Vital Signs Temperature 97.8 F 09/29/23 22:10 Pulse Rate 76 09/29/23 22:10 Respiratory Rate 17 09/29/23 22:10 Blood Pressure 143/74 09/29/23 22:10 Pulse Oximetry 97 09/29/23 22:10 Oxygen Delivery Me thod Room Air 09/29/23 22:10 MDM - Extremity (Nontraumatic) Medical Decision Making 43-year-old female comes in today for complaints of injury to the left hip. On exam patient appears nontoxic. Patient decreased range of motion of the left hip due to pain. Distal pulses and sensation are intact. Differential diagnosis includes but not limited to dislocation, fracture, sprain. X-rays of the hip and knee were unremarkable. Reviewed exam with patient recommended treatment for sprain. Patient reported understanding agreed to plan. Lab Data Radiology Impressions Hip/Pelvis X-Ray 09/29/23 22:39 IMPRESSION: No acute findings. Knee X-Ray 09/29/23 22:39 IMPRESSION: No acute findings. All radiology interpretation(s) finalized by discharge Discharge Plan Discharge Patient Disposition: Home Clinical Impression: Sprain of left hip Qualifiers: Encounter type: initial encounter Qualified Code(s): S73.102A - Unspecified sprain of left hip, initial encounter Condition: Stable Prescriptions: New hydrocodone-acetaminophen 5-325 mg tablet 1 tab PO Q6H PRN (Reason: pain) Qty: 7 0RF No Action omeprazole 40 mg capsule,delayed release(DR/EC) 40 mg PO DAILY Hold Instructions: Resume on 03/21/22. Discharge Orders: Discharge ED (Routine); Ordered 09/29/23 Ordered By: Jeff Alejandra Referrals: Eriberto Armstrong MD [Primary Care Provider] - Discharge Diet: Usual diet Discharge Activity: Increase activity as tolerated Patient Instructions: Hip Sprain (ED) Activity Restrictions/Additional Instructions: Activity as tolerated. Gentle stretching and range of motion exercises. Use acetaminophen and ibuprofen to control pain. Use ice packs for further pain control. Use hydrocodone for severe pain. Use crutches until he can bear weight comfortably. Follow-up with orthopedics office for further evaluation and treatment. Coding Level of Care Code ED Lithograph Press Operator for Asiya Dennison
--- NOTE | 2023-09-29 22:39 | XRR_ITS ---
PROCEDURE INFORMATION: Exam: XR Left Hip Exam date and time: 09/29/2023 10:49 PM Age: 43 years old Clinical indication: Injury or trauma; Fall; Blunt trauma (contusions or hematomas); Patient HX: C/O left hip and knee pain after getting leg caught in a hole in the ground earlier today. ; Additional info: Injury, include pelvis TECHNIQUE: Imaging protocol: Radiologic exam of the left hip. Views: 2 or 3 views hip with pelvis when performed. COMPARISON: No relevant prior studies available. FINDINGS: Bones/joints: Unremarkable. No acute fracture. Soft tissues: Unremarkable. XR/XR hip LT 2-3V wo/w pel* [id number] IMPRESSION: No acute findings.
--- NOTE | 2023-09-29 22:39 | XRR_ITS ---
PROCEDURE INFORMATION: Exam: XR Left Knee Exam date and time: 09/29/2023 10:49 PM Age: 43 years old Clinical indication: Injury or trauma; Fall; Blunt trauma; Patient HX: C/O left hip and knee pain after getting leg caught in a hole in the ground earlier today. TECHNIQUE: Imaging protocol: Radiologic exam of the left knee. Views: 3 views. COMPARISON: No relevant prior studies available. FINDINGS: Bones/joints: Normal. Soft tissues: Normal. XR/XR knee LT 3V* [id number] IMPRESSION: No acute findings.
[2023-09-29] MEDS: HYDROcodone-acetaminophen 10-325 mg Tablet 1 TAB PO (23:03)
[2023-09-29] MEDS: ketorolac 30 mg/mL INJ IM (23:04)
[2023-09-30 00:03] VITALS: RESP 18
--- NOTE | 2023-09-30 05:36 | DCPLANNER ---
message sent to ortho for follow upo hip strain
== END 2023-09-30 00:05 | disposition home or self-care (01) ==
PROVIDERS: Emergency Provider Nurse Practitioner Family; PCP Family Medicine
DX: S73.102A Unspecified sprain of left hip, initial encounter (principal); X50.1XXA Overexertion from prolonged static or awkward postures, initial encounter
CPT/HCPCS: 73502; 73562; 96372; 99284; E0114; J1885

== ENCOUNTER → 2023-11-04 13:01 | Outpatient (BNVA) | payer OTHER, SELFPAY | PROVIDERS: PCP Family Medicine; Referring Provider Nurse Practitioner Family; Visit Provider Nurse Practitioner | DX: S76.012A Strain of muscle, fascia and tendon of left hip, initial encounter; X50.9XXA Other and unspecified overexertion or strenuous movements or postures, initial encounter | CPT/HCPCS: 73502 ==

== ENCOUNTER 2023-12-10 06:00 | Outpatient (RCR) | payer OTHER, SELFPAY | END 2023-12-11 23:59 | disposition home or self-care (01) | LOC: TPT 06:00 | PROVIDERS: Visit Provider Nurse Practitioner | DX: M25.552 Pain in left hip (principal) | CPT/HCPCS: 97162 ==

== ENCOUNTER 2023-12-12 06:00 | Outpatient (RCR) | payer OTHER, SELFPAY | END 2024-01-11 23:59 | disposition home or self-care (01) | LOC: TPT 06:00 | PROVIDERS: Visit Provider Nurse Practitioner | DX: M25.552 Pain in left hip (principal) | CPT/HCPCS: 97110; 97140 ==

== ENCOUNTER 2024-01-12 06:00 | Outpatient (RCR) | payer OTHER, SELFPAY | END 2024-02-05 23:59 | disposition home or self-care (01) | LOC: TPT 06:00 | PROVIDERS: PCP Family Medicine; Visit Provider Nurse Practitioner | DX: M25.552 Pain in left hip (principal) | CPT/HCPCS: 97110 ==

== ENCOUNTER 2024-03-12 16:58 | Outpatient (CLI) | payer OTHER, SELFPAY ==
--- NOTE | 2024-03-12 17:03 | XRR_ITS ---
PROCEDURE INFORMATION: Exam: XR Right Foot Exam date and time: 03/12/2024 5:07 PM Age: 44 years old Clinical indication: Injury or trauma; Blunt trauma; Right; Injury date: 03/12/24; Injury details: Hit foot on table early this morning, RT foot pain between 1st and 2nd digit; Additional info: Pain in right foot TECHNIQUE: Imaging protocol: Radiologic exam of the right foot. Views: 3 or more views. COMPARISON: No relevant prior studies available. FINDINGS: Bones/joints: No acute fracture or dislocation. Joint spaces are preserved. Soft tissues: Normal. XR/XR foot RT min 3V* [id number] IMPRESSION: No acute fracture or dislocation.
== END 2024-03-12 16:59 | disposition home or self-care (01) ==
LOC: RAD 16:59
PROVIDERS: PCP Family Medicine; Visit Provider Nurse Practitioner Family
DX: M79.671 Pain in right foot (principal)
CPT/HCPCS: 73630

== ENCOUNTER 2024-09-17 10:13 | Outpatient (CLI) | payer OTHER, SELFPAY ==
--- NOTE | 2024-09-17 10:15 | MM_ITS ---
WS: [id number] BILATERAL 3D TOMOSYNTHESIS DIGITAL SCREENING MAMMOGRAPHY WITH CAD CLINICAL INFORMATION: SCREENING HISTORY: Screening mammogram. No current complaints. COMPARISON: None. TECHNIQUE: Bilateral CC and MLO views. FINDINGS: Scattered fibroglandular densities bilaterally. No suspicious focal mass, asymmetry, calcifications, or architectural distortion. No evidence of malignancy. MM/MM scr BI tomosynthesis [id number] IMPRESSION: DENSITY: There are scattered areas of fibroglandular density. BI-RADS: 1 - Negative. FOLLOW UP: 1 Year Follow-up Recommend return to annual screening mammography.
== END 2024-09-17 10:14 | disposition home or self-care (01) ==
LOC: RAD 10:14
PROVIDERS: PCP Family Medicine; Visit Provider Family Medicine
DX: Z12.31 Encounter for screening mammogram for malignant neoplasm of breast (principal); R92.323 Mammographic fibroglandular density, bilateral breasts
CPT/HCPCS: 77063; 77067

== ENCOUNTER 2024-12-09 19:42 | Emergency (ER) | payer OTHER, SELFPAY ==
[2024-12-09 19:48] VITALS: BP 97/65; PULSE 109; RESP 16; TEMP 37.3; O2SAT 98; BMI 37.4
--- NOTE | 2024-12-09 21:06 | CTR_ITS ---
PROCEDURE INFORMATION: Exam: CT Abdomen And Pelvis With Contrast Exam date and time: 12/09/2024 10:48 PM Age: 44 years old Clinical indication: Vomiting; Abdominal pain; Localized; Left upper quadrant (luq); Prior surgery; Surgery date: 6+ months; Surgery type: Cholecystectomy TECHNIQUE: Imaging protocol: Computed tomography of the abdomen and pelvis with contrast. Radiation optimization: All CT scans at this facility use at least one of these dose optimization techniques: automated exposure control; mA and/or kV adjustment per patient size (includes targeted exams where dose is matched to clinical indication); or iterative reconstruction. Contrast material: OMNI 350; Contrast volume: 100 ml; Contrast route: INTRAVENOUS (IV); COMPARISON: CR XR hip LT 2-3V wo/w pel* [id number] 11/04/2023 1:02 PM RADIATION DOSE METRICS: Total DLP (mGy-cm): 993 FINDINGS: Diaphragm: Small hiatal hernia. Liver: No discrete liver lesions are apparent. Smooth hepatic contour. Gallbladder and biliary ducts: Prior cholecystectomy. Pancreas: No evidence of pancreatitis. No ductal dilation. Spleen: Spleen is mildly enlarged measuring 13.6 cm on axial imaging. Adrenal glands: Adrenal glands are within expected limits. Kidneys and ureters: No renal or ureteral calculi are identified. No hydronephrosis. Stomach and bowel: Very few colonic diverticula. No diverticulitis or focal colitis. Few scattered air-fluid levels. No obstruction. Appendix: No evidence of appendicitis. Intraperitoneal space: No free air. No significant fluid collection. Vasculature: No abdominal aortic aneurysm. Lymph nodes: No pathologically enlarged lymph nodes by CT size criteria. Urinary bladder: Unremarkable as visualized. Reproductive: Unremarkable as visualized. Bones/joints: No acute osseous abnormalities. Soft tissues: Unremarkable. CT/CT abdomen pelvis w con* [id number] IMPRESSION: 1. Equivocal findings of mild enteritis. 2. Mild splenomegaly. 3. Small hiatal hernia. 4. Minimal colonic diverticulosis.
--- NOTE | 2024-12-09 21:09 | W.ED.ABDPA2 ---
HPI - Abdominal Pain General: Chief Complaint: Abdominal Pain Stated Complaint: n/v/d severe pain in L ribs Time Seen by Provider: 12/09/24 20:59 History of Present Illness: 44-year-old female with a history of obesity, sciatica depression and anxiety who presents emergency room with left-sided abdominal pain and left flank pain. She has had some nausea and vomiting. She has had multiple episodes of diarrhea. No known sick contacts. No chest pain. No fever. Related Data Home Medications ?Medication ?Instructions ?Recorded ?Confirmed pantoprazole 40 mg tablet,delayed mg PO 09/17/24 09/17/24 release sertraline 100 mg tablet mg PO 09/17/24 09/17/24 Previous Rx's ?Medication ?Instructions ?Recorded pantoprazole 40 mg tablet,delayed 40 mg PO BID 6 weeks #84 tabs 09/17/24 release (Protonix) diclofenac sodium 50 mg 50 mg PO BID PRN pain #14 tabs 12/09/24 tablet,delayed release ondansetron 8 mg disintegrating 8 mg PO Q6H #14 tabs 12/09/24 tablet Allergies Allergy/AdvReac Type Severity Reaction Status Date / Time onion Allergy Mild itching, Verified 12/09/24 19:50 hives, swelling. codeine Allergy ADR-Halluci Verified 12/09/24 19:50 nating Review of Systems Narrative: Constitutional symptoms: Negative except as documented in HPI. Skin symptoms: Negative except as documented in HPI. Eye symptoms: Negative except as documented in HPI. ENMT symptoms: Negative except as documented in HPI. Respiratory symptoms: Negative except as documented in HPI. Cardiovascular symptoms: Negative except as documented in HPI. Gastrointestinal symptoms: Negative except as documented in HPI. Genitourinary symptoms: Negative except as documented in HPI. Musculoskeletal symptoms: Negative except as documented in HPI. Neurologic symptoms: Negative except as documented in HPI. Psychiatric symptoms: Negative except as documented in HPI. Endocrine symptoms: Negative except as documented in HPI. [facility] ED PFSH: Medical History (Updated 12/09/24 @ 23:19 by Ewa Gonsalves MD) Sciatica, left side Strain of left hip adductor muscle Tubular adenoma of colon Helicobacter pylori gastritis No pertinent past medical history neg dx- hnt, dm, thyroid, dvt/pe PCP: Clari Gomez Major depressive disorder, recurrent, moderate Reported symptoms: Cries easily; fatigue;; mind goes blank; difficulty concentrating; trouble making decisions; trouble remembering; thoughts hard to dismiss; trouble sleeping; easily annoyed and irritability; nervous feeling; excessive worries and fears; decreased interests in things; feeling inferior; work difficulties; and previous thoughts of harming self. Anxiety and depression GERD (gastroesophageal reflux disease) Surgical History History of cholecystectomy History of sinus surgery Family History Grandmother Diabetes maternal and paternal Hypertension maternal and paternal Stroke maternal Breast cancer maternal Grandfather Diabetes maternal and paternal Hypertension maternal and paternal Father Hypertension Mother Thyroid disease miky Denies family history of Colon cancer Ovarian cancer Clotting disorder Hyperlipidemia Bleeding disorder Uterine cancer Social History Smoking and tobacco/nicotine status: never used tobacco/nicotine Substance/Drug Use: never Physical Exam Narrative: EXAM NARRATIVE: General: Alert, no acute distress. Skin: Warm, dry. Head: Normocephalic, atraumatic. Neck: Supple, trachea midline. Eye: Extraocular movements are intact. Ears, nose, mouth and throat: mucosa moist. Cardiovascular: Regular, Normal peripheral perfusion. Respiratory: Lungs are clear to auscultation, respirations are non-labored, breath sounds are equal, Symmetrical chest wall expansion. Gastrointestinal: Soft, tenderness in left upper quadrant, Non distended Musculoskeletal: Normal ROM, no deformity. Neurological: Alert and oriented, No focal neurological deficit observed. Psychiatric: Cooperative, appropriate mood & affect. Course Vital Signs: Vital signs: Vital Signs Temperature 99.2 F 12/09/24 19:48 Pulse Rate 77 12/09/24 23:31 Respiratory Rate 16 12/09/24 19:48 Blood Pressure 119/68 12/09/24 23:31 Pulse Oximetry 97 12/09/24 23:31 Oxygen Delivery Me thod Room Air 12/09/24 22:23 MDM - Abdominal Pain Medical Decision Making Medical decision making: Differential diagnosis including but not limited to and based on the above HPI, review of systems and physical exam: Ureterolithiasis. Urinary tract infection. Appendicitis. Cholecystis. Musculoskeletal / back pain. Pyelonephritis. Orders placed to evaluate differential diagnosis based on the above differential, HPI and physical exam Lab Review: Laboratory results were reviewed and interpreted by myself the emergency room physician. No leukocytosis. No anemia. No renal failure. Urinalysis is positive for 11-20 reds but no whites. CT of the abdomen pelvis: No acute process. Possibly some enteritis. This was reviewed and interpreted by myself the emergency room physician. I also reviewed the radiology report. I reviewed the patient's medical record. Reexamination: Patient remained stable. No increased work of breathing. No altered mental status. No focal motor deficits. Assessment and plan: Gastroenteritis Dehydration ? IV fluids, IV Zofran and IV Toradol. - Discharged home - Discussed plan with patient. Answered any questions. - Evaluation and treatment of this problem were appropriate in the emergency setting. Lab Data 12/09/24 20:55 12/09/24 20:55 Labs/Radiology: Radiology Impressions Abdomen/Pelvis CT 12/09/24 21:06 IMPRESSION: 1. Equivocal findings of mild enteritis. 2. Mild splenomegaly. 3. Small hiatal hernia. 4. Minimal colonic diverticulosis. Laboratory Results WBC 6.50 10^3/uL (3.29-11.43) 12/09/24 20:55 RBC 4.83 10^6/uL (3.85-5.65) 12/09/24 20:55 Hgb 14.00 g/dL (11.27-16.99) 12/09/24 20:55 Hct 42.6 % (36-47) 12/09/24 20:55 MCV 88.2 fl (85-98) 12/09/24 20:55 MCH 29.0 pg (27-33) 12/09/24 20:55 MCHC 32.9 g/dL (30-55) 12/09/24 20:55 RDW 14.3 % (12.1-15.1) 12/09/24 20:55 Plt Count 295 10^3/cmm (157-399) 12/09/24 20:55 MPV 10.6 fL (7.4-10.4) H 12/09/24 20:55 Neut % (Auto) 71.4 % 12/09/24 20:55 Lymph % (Auto) 21.4 % 12/09/24 20:55 Bland % (Auto) 5.5 % 12/09/24 20:55 Eos % (Auto) 0.9 % 12/09/24 20:55 Baso % (Auto) 0.3 % 12/09/24 20:55 Neut # (Auto) 4.64 10^3/uL (1.8-7.7) 12/09/24 20:55 Lymph # (Auto) 1.4 10^3/uL (0.8-4.8) 12/09/24 20:55 Bland # (Auto) 0.4 10^3/uL (0.2-0.9) 12/09/24 20:55 Eos # (Auto) 0.1 10^3/uL (0.0-0.8) 12/09/24 20:55 Baso # (Auto) 0.0 10^3/uL (0.0-0.1) 12/09/24 20:55 Nucleated RBC % (auto) 0 % 12/09/24 20: Nucleated RBCs # 0.0 /100WBC 12/09/24 20:55 Sodium 137 mmol/L (136-145) 12/09/24 20:55 Potassium 3.5 mmol/L (3.5-5.1) 12/09/24 20:55 Chloride 104 mmol/L (98-107) 12/09/24 20:55 Carbon Dioxide 20 mmol/L (22-29) L 12/09/24 20:55 Anion Gap 16.5 (5-19) 12/09/24 20:55 BUN 8 mg/dL (6-20) 12/09/24 20:55 Creatinine 0.7 mg/dL (0.5-0.9) 12/09/24 20:55 GFR Calculation 91.3 mL/min (90-130) 12/09/24 20:55 Glucose 99 mg/dL (65-115) 12/09/24 20:55 Calculated Osmolality 282 mOsm/kg (285-295) L 12/09/24 20:55 Calcium 8.8 mg/dL (8.5-10.5) 12/09/24 20:55 Total Bilirubin 0.3 mg/dL (0.15-1.2) 12/09/24 20:55 AST 14 U/L (0-32) 12/09/24 20:55 ALT 8 U/L (0-33) 12/09/24 20:55 Alkaline Phosphatase 95 U/L (35-105) 12/09/24 20:55 Total Protein 7.4 g/dL (6.6-8.7) 12/09/24 20:55 Albumin 3.7 g/dL (3.5-5.2) 12/09/24 20:55 Globulin 3.7 g/dL (1.3-4.6) 12/09/24 20:55 Lipase 39 U/L (13-60) 12/09/24 20:55 HCG, Qual Negative (Negative) 12/09/24 20:55 Urine Color Yellow (Yellow) 12/09/24 21:03 Urine Appearance Cloudy (CLEAR) A 12/09/24 21: Urine pH 6.0 (5-7) 12/09/24 21:03 Ur Specific [place] 1.027 (1.005-1.030) 12/09/24 21:03 Urine Protein 1+ (Negative) A 12/09/24 21:03 Urine Glucose (UA) Negative (Normal) 12/09/24 21:03 Urine Ketones Trace (Negative) 12/09/24 21:03 Urine Blood 3+ (Negative) A 12/09/24 21:03 Urine Nitrate Negative (Negative) 12/09/24 21: Urine Bilirubin Negative (Negative) 12/09/24 21:03 Urine Urobilinogen 1.0 mg/dL (Negative) 12/09/24 21:03 Ur Leukocyte Esterase Trace (Negative) A 12/09/24 21:03 Urine RBC 11-20 /hpf (0-2) H 12/09/24 21:03 Urine WBC 0-5 /hpf (0-5) 12/09/24 21:03 Ur Squamous Epith Cells 6-10 /hpf (0-5) 12/09/24 21:03 Amorphous Sediment Not Reportable 12/09/24 21:03 Urine Bacteria 1+ /hpf (NONE) H 12/09/24 21:03 Hyaline Casts 2.46 /lpf 12/09/24 21:03 All radiology interpretation(s) finalized by discharge Discharge Plan Discharge Patient Disposition: Home Clinical Impression: Enteritis, Dehydration Condition: Stable Prescriptions: New ondansetron 8 mg tablet,disintegrating 8 mg PO Q6H Qty: 14 0RF Rx Instructions: Take 1/2-1 tab every 6 hours as needed for nausea and vomiting diclofenac sodium 50 mg tablet,delayed release (DR/EC) 50 mg PO BID PRN (Reason: pain) Qty: 14 0RF No Action sertraline 100 mg tablet PO pantoprazole 40 mg tablet,delayed release (DR/EC) PO pantoprazole [Protonix] 40 mg tablet,delayed release (DR/EC) 40 mg PO BID 42 Days Qty: 84 1RF Discharge Orders: Discharge ED (Routine); Ordered 12/09/24 Ordered By: Ewa Gonsalves Referrals: Eriberto Armstrong MD [Primary Care Provider, [facility]] Discharge Diet: Usual diet Discharge Activity: Increase activity as tolerated Patient Instructions: Enteritis (ED), Opioid Safety, Pain Management, Patient Portal & Lisa Instructions Activity Restrictions/Additional Instructions: Thank you for choosing [facility] for your healthcare needs today. You have been screened and evaluated and felt safe for discharge. Health conditions do change or evolve sometimes and as such it is important that you follow up with your Primary Doctor to be re checked, 3-5 days is a general good time frame for follow up. You are always welcome to return to the ED for re assessment if your symptoms are worsening or you have new concerns Print Language: Austrian Coding Level of Care Code ED Roll Or Tape Edge Machine Operator for Asiya Dennison
[2024-12-09 21:15] LABS: HCG, Serum Qual Negative (Negative)
[2024-12-09 21:17] LABS: Hematocrit 42.6 % (36-47); Hemoglobin 14.00 g/dL (11.27-16.99); Mean Corpuscular HGB Conc 32.9 g/dL (30-55); Mean Corpuscular Hemoglobin 29.0 pg (27-33); Mean Corpuscular Volume 88.2 fl (85-98); Nucleated Red Blood Cells % 0 %; Platelet Count 295 10^3/cmm (157-399); Red Blood Count 4.83 10^6/uL (3.85-5.65); White Blood Count 6.50 10^3/uL (3.29-11.43)
[2024-12-09 21:19] LABS: Alanine Aminotransferase 8 U/L (0-33); Albumin Level 3.7 g/dL (3.5-5.2); Alkaline Phosphatase 95 U/L (35-105); Anion Gap 16.5 (5-19); Aspartate Amino Transferase 14 U/L (0-32); Blood Urea Nitrogen 8 mg/dL (6-20); Calcium 8.8 mg/dL (8.5-10.5); Carbon Dioxide 20 mmol/L (22-29); Chloride 104 mmol/L (98-107); Creatinine Clr Calc Pharmacy 122.7314; Globulin 3.7 g/dL (1.3-4.6); Glucose 99 mg/dL (65-115); Lipase 39 U/L (13-60); Osmolality Calculated 282 mOsm/kg (285-295); Potassium 3.5 mmol/L (3.5-5.1); Sodium 137 mmol/L (136-145); Total Protein 7.4 g/dL (6.6-8.7)
[2024-12-09 21:21] LABS: Glucose Urine UA Negative (Normal); Nitrate Urine Negative (Negative); Specific Gravity, Urine 1.027 (1.005-1.030)
[2024-12-09 21:26] LABS: Add Urine Microscopic? YES
[2024-12-09] MEDS: ondansetron 2 mg/ML SDV 2 mL 4 MG IVP (22:20)
[2024-12-09 22:23] VITALS: BP 131/95; PULSE 83; O2SAT 97
[2024-12-09] MEDS: iohexol 350 mg/mL 500 mL Btl (per mL) IV (22:30)
[2024-12-09 23:31] VITALS: BP 119/68; PULSE 77; O2SAT 97
== END 2024-12-09 23:40 | disposition home or self-care (01) ==
PROVIDERS: Emergency Medicine; Emergency Provider Emergency Medicine; PCP Family Medicine
DX: K52.9 Noninfective gastroenteritis and colitis, unspecified (principal); E86.0 Dehydration
CPT/HCPCS: 36415; 74177; 80053; 81001; 83690; 84703; 85025; 87086; 96361; 96374; 96375; 99285; J1885; J2405; J7030